=== PATIENT | male | born 1955 | race Caucasian/White ===

== ENCOUNTER 2017-06-16 14:35 | Outpatient (CLI) | payer OTHER ==
--- NOTE | 2017-06-16 15:45 | RAD ---
2 VIEWS CHEST: Date: 06/16/17 PROVIDED CLINICAL HISTORY: Pedal edema. FINDINGS: Cardiac and mediastinal silhouette is within normal limits. No focal consolidation, pleural fluid, o r pneumothorax apparent. IMPRESSION: No evidence for an acute cardiopulmonary process. POS: [facility]
== END 2017-06-16 14:36 | disposition home or self-care (01) ==
LOC: MADRAD 14:35
PROVIDERS: ATTEND Obstetrics & Gynecology
DX: R60.0 Localized edema (principal)
CPT/HCPCS: 71020